=== PATIENT | male | born 1975 | race Caucasian/White ===

== ENCOUNTER 2018-01-20 14:48 | Emergency (ER) | payer SELFPAY ==
--- NOTE | 2018-01-20 15:18 | EDM.PDOC ---
ED HPI GENERAL MEDICAL PROBLEM - General Chief Complaint: Lower Extremity Injury/Pain Stated Complaint: LT LEG SWOLLEN Time Seen by Provider: 01/20/18 15:08 - History of Present Illness INITIAL COMMENTS - FREE TEXT/NARRATIVE: HISTORY AND PHYSICAL: History of present illness: The patient is a healthy 42-year-old male who presents with complaints of pain to his lateral left thigh and distal anterior thigh after a ladder fell on this at work 4 days ago. The patient states he had no other injuries and he did not fall off the ladder but the latter impacted his thigh causing an abrasion at the anterior distal aspect of the soft tissue and a big bruise that has been causing him discomfort. He has no bony hip femur knee or distal leg pain and no other injuries or systemic complaints. He has used several doses of over-the- counter meds but his work wanted him to be cleared to return. Review of systems: As per history of present illness and below otherwise all systems reviewed and negative. Past medical history: As per history of present illness and as reviewed below otherwise noncontributory. Surgical history: As per history of present illness and as reviewed below otherwise noncontributory. Social history: No reported history of drug or alcohol abuse. Family history: As per history of present illness and as reviewed below otherwise noncontributory. Physical exam: General: Well-developed well-nourished man who is nontoxic and moves easily in the ED HEENT: Atraumatic, normocephalic, negative for conjunctival pallor or scleral icterus, mucous membranes moist, throat clear, neck supple, nontender, trachea midline. Lungs: Clear to auscultation, breath sounds equal bilaterally, chest nontender. Heart: S1S2, regular rate and rhythm no overt murmurs Abdomen: Soft, nondistended, nontender. NABS. Pelvis: Stable nontender. No lateral hip tenderness on the left Genitourinary: Deferred. Rectal: Deferred. Extremities: Atraumatic with full range of motion of all extremities with the exception of the anterior and lateral soft tissue on the left. At the distal anterior aspect of the soft tissue thigh there is a longitudinal superficial abrasion with some pinkish erythema but no fluctuance drainage crepitance or tenderness. At the lateral aspect of the soft tissue thigh near the upper portion there is a ill-defined area of ecchymosis and swelling which is very minor and there is tenderness in this region. The patient can engage the quadriceps without deficit and has no proximal hip or distal knee bony tenderness or distal tib-fib or ankle tenderness. He has no femur tenderness only complains of pain with palpation of the soft tissue. Exam, negative for cords or calf pain. Neurovascular unremarkable. Neuro: Awake, alert, oriented. Cranial nerves II through XII unremarkable. Cerebellum unremarkable. Motor and sensory unremarkable throughout. Exam nonfocal. Diagnostics: Patient was offered x-ray of femur and defers Therapeutics: [] Impression: Left thigh contusion status post blunt trauma subacute Definitive disposition and diagnosis as appropriate pending reevaluation and review of above. left leg Pain Score (Numeric/FACES): 10 - Related Data Allergies Allergy/AdvReac Type Severity Reaction Status Date / Time No Known Allergies Allergy Verified 01/20/18 15:05 Home Meds: Home Meds . [No Known Home Meds] 01/20/18 [History] Past Medical History - Past Health History Medical/Surgical History: Denies Medical/Surgical History Social & Family History - Family History Family Medical History: Noncontributory - Tobacco Use Smoking Status *Q: Never Smoker - Alcohol Use Days Per Week of Alcohol Use: 7 Number of Drinks Per Day: 1 Total Drinks Per Week: 7 - Recreational Drug Use Recreational Drug Use: No Review of Systems - Review of Systems Review Of Systems: ROS reveals no pertinent complaints other than HPI. ED EXAM, GENERAL - Physical Exam Exam: See Below (See dictation) Course - Vital Signs Last Recorded V/S: Last Vital Signs Temp 37.2 C 01/20/18 15:05 Pulse 99 01/20/18 15:05 Resp 20 01/20/18 15:05 BP 142/90 H 01/20/18 15:05 Pulse Ox 98 01/20/18 15:05 Departure - Departure Time of Disposition: 15:17 Disposition: Home, Self-Care 01 Condition: Good Clinical Impression: Contusion of thigh, left Qualifiers: Encounter type: initial encounter Qualified Code(s): S70.12XA - Contusion of left thigh, initial encounter - Discharge Information Referrals: PCP,None [Primary Care Provider] - Additional Instructions: The following information is given to patients seen in the emergency department who are being discharged to home. This information is to outline your options for follow-up care. We provide all patients seen in our emergency department with a follow-up referral. The need for follow-up, as well as the timing and circumstances, are variable depending upon the specifics of your emergency department visit. If you don't have a primary care physician on staff, we will provide you with a referral. We always advise you to contact your personal physician following an emergency department visit to inform them of the circumstance of the visit and for follow-up with them and/or the need for any referrals to a consulting specialist. The emergency department will also refer you to a specialist when appropriate. This referral assures that you have the opportunity for followup care with a specialist. All of these measure are taken in an effort to provide you with optimal care, which includes your followup. Under all circumstances we always encourage you to contact your private physician who remains a resource for coordinating your care. When calling for followup care, please make the office aware that this follow-up is from your recent emergency room visit. If for any reason you are refused follow-up, please contact the [facility] emergency department at and ask to speak to the emergency department charge nurse. [facility]- Internal Medicine and Family [address] [address] Use ice to areas of discomfort and swelling and take diclofenac as prescribed and needed for pain. He may return to work when you choose keeping in mind that there may be soreness with activities and that you should be doing all activities more slowly. Please follow-up with your provider in the clinic or one of our providers in the next few days for reevaluation and further care as needed. Return to ER as needed and as discussed
== END 2018-01-20 15:30 | disposition home or self-care (01) ==
LOC: MW.ED 14:48
DX: S70.12XA Contusion of left thigh, initial encounter (principal); W20.8XXA Other cause of strike by thrown, projected or falling object, initial encounter; Y99.0 Civilian activity done for income or pay
CPT/HCPCS: 99283